=== PATIENT | female | born 1950 | race Caucasian/White ===

== ENCOUNTER 2016-10-29 14:35 | Emergency (ER) | payer MEDICARE, MEDICAID ==
[~2016-10-29] VITALS: Ht 165.1 cm; Wt 73.0 kg
[~2016-10-29 14:35] MED LIST: ACETAM PO; ADVAIR 10028 PUFF/IN IN; AMBIEN10 MG PO; AMOXICILLIN 50500 MG PO; AZITHROMYCIN500 MG PO; BACTRIM DS 8001 TAB PO; BAYER ASPIRIN R81 MG PO; BENZONATATE200 MG PO; BUDEPRION SR150 MG PO; BUPROPION HYDR150 M1 PO; CALCIUM ACETAT667 MG PO; CALTRATE 600 +1 TA1 PO; CALTRATE 600600 MG; CETIRIZINE10 MG OR; CIPRO 500MG TA500 MG PO; DARVOCET-N 1001 EACH PO; DILTIAZEM240 M1 PO; DOXYCYCLINE MO100 MG PO; DULERA1 AR1 IH; Diclofenac Sod100 MG PO; EC NAPROSYN500 MG PO; EVISTA60 MG; FERROUS SULFAT325 M2 PO; FEXOFENADINE180 MG PO; FLEXERIL10 MG PO; FLUOXETINE20 M2 PO; FUROSEMIDE20 MG PO; GABAPENTIN 600600 MG PO; HYCODAN 1.5 MG-1 TAB PO; HYDROCODONE1 TABLET PO; IBUPROFEN600 MG PO; IMDUR30 MG PO; INCRUSE EL62.5 MCG/A IH; KEFLEX 500MG.500 MG PO; KETOROLAC10 MG PO; LIPITOR10 MG; LISINOPRIL 10MG10 MG PO; LORTAB 5/500 501 TAB PO; MEDROL 4MG. DOSE4 MG PO; MELOXICAM7.5 MG PO; METFORMIN500 MG PO; METOCLOPRAMIDE5 MG PO; MUCINEX1200 MG PO; Meclizine25 MG PO; NEURONTIN 300M300 MG PO; NEURONTIN100 MG PO; NEXIUM40 MG PO; PHENERGAN 25MG.25 M1 PO; PREDNISONE 20MG20 MG PO; REQUIP1 MG PO; REQUIP5 MG PO; SEPTRA DS 800 M1 TAB PO; SINGULAIR10 MG PO; SPIRIVA HA1 PUFF/INH IH; SPIRIVA18 MCG IH; SYMBICORT1 AER IH; TESSALON PERLE100 MG PO; TOPROL XL 25MG25 MG PO; TRAMADOL 50MG T50 MG PO; TRAMADOL PO; ULTRACET 325 MG1 TAB PO; ULTRAM50 MG PO; VICODIN 5/500 T1 TAB PO; VICODIN 7.5/501 EACH PO; ZANTAC 300300 MG PO; ZOFRAN ODT8 MG PO; ZOFRAN4 MG PO; ZOLOFT 50MG TAB50 MG PO; ZOLOFT50 MG PO; [UNRECOGNIZED DRUG - REMARK]
--- NOTE | 2016-10-29 15:48 | Emergency Room Report ---
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 N Clinical Suspician of Infection? N Mental Status: 1 - Regular (Normal Baseline) Sepsis Risk:Low Sepsis Risk Have you (or family members/close friends) recently traveled outside the [place]? N If Yes, where/when: Have you had exposure to infectious disease within the past month? TB? Other? Specify: Source patient, RN notes reviewed Exam Limitations no limitations Comment Pt presents with dry cough, wheezing, chest congestion, and sinus pressure for the past month. Reports that she was treated with 10 days of doxycycline from her PCP and improved while she was taking the antibiotic. She has a history of COPD and uses Advair and another inhaled medication. Timing/Duration one month Severity moderate Modifying Factors Improves With: medication. Associated Symptoms chills, cough, shortness of breath ALLERGIES Coded Allergies: hydrochlorothiazide (Severe, ITCHING 10/29/16) amlodipine (Intermediate, ITCHING 10/29/16) Home Medications Active Scripts Tramadol Hcl (Ultram 50MG) 50 MG PO TID #15 TAB Prov: 02/10/13 ONDANSETRON HCL (Zofran 4MG Tab) 4 MG PO Q6HP PRN NAUSEA AND VOMITING #6 TAB Prov: 12/23/15 Reported Medications Atorvastatin Calcium (Lipitor 10MG) 10 QHS Aspirin (Samra Aspirin Regimen) 81 MG PO DAILY DILTIAZEM HCL (Diltiazem 24HR ER) 240 MG PO DAILY Meloxicam (Meloxicam 7.5MG) 7.5 MG PO BID Esomeprazole Magnesium (Nexium 40MG Cap) 40 MG PO DAILY UMECLIDINIUM BROMIDE (Incruse Ellipta) 62.5 MCG IH DAILY Calcium Acetate 667 MG PO BID Ropinirole Hydrochloride (Requip) 0.25 MG PO QHS Metformin HCL (Metformin) 500 MG PO DAILY LISINOPRIL (Lisinopril) 10 MG PO DAILY Ferrous Sulfate (Ferrous Sulfate 325MG) 325 MG PO DAILY #30 TAB Metoprolol Succinate Xl (Toprol Xl) 25 MG PO DAILY Gabapentin (Gabapentin 600MG) 300 MG PO QID Bupropion Hcl (Bupropion HCl Sr) 150 MG PO BID Cetirizine Hcl (Cetirizine HCl) 10 MG OR DAILY (SON ANDRE) History Medical History General CAD? No Angina: No [place]: No Hypertension? Yes Hyperlipidemia? Yes CHF? No DVT? No PE? No COPD? Yes Asthma? No Anemia? Yes GERD? No Gastric ulcers? No GI Bleed? No Hernia? No Thyroid Problems? No Hypothyroidism? No CVA? No Seizures? No Insulin Dependent: No Insulin Pump: No Home FSBS? Yes Renal Insuffiency? No End Stage Renal Disease? No UTI? Yes Stones? Yes BPH? No GB Disease: Yes Nephritic Syndrome? No Asplenia? No Hepatitis? No Sickle Cell Disease? No Arthritis? Yes Migraines? No Cataracts? Yes Glaucoma? No MRSA? Yes HIV? No TB? No Anxiety? No Depression? No Cancer? No Immunization Hx Ped.Immunizations UTD Yes DT/Tetanus 1-4 YRS Flu THIS YR Pneumonia 1-4 YRS Surgical Hx Previous Surgery?Y GALLBLADDER APPY HYSTERECTOMY SHOULDER D & C R SHOULDER MARSHA L SHOULDER HEART CATH L FIFTH FINGER TOENAIL REMOVED LT GREAT CATARACTS LEFT EYE CATARACTS R EYE Family History Family Hx Diabetes Yes CAD Yes Hypertension Yes Hyperlipidemia Yes Cancer Yes TB No Social History Smoking Hx Smoker: Current Every Day Smoker Tobacco: Yes Type Cigarettes Packs/day 1 1/2 - 2 Packs Alcohol Alcohol: No (SON ANDRE) Review of Systems All Other Systems Reviewed and Negative Constitutional chills, malaise ENT nose discharge, nose congestion. denies: ear pain, throat pain. Respiratory cough, shortness of breath, wheezing (SON ANDRE) Physical Exam Vital Signs Vital Signs Date Time Temp Pulse Resp B/P Pulse O2 O2 Flow FiO2 Ox Delivery Rate 10/29 1629 70 18 154/79 91 10/29 1533 70 18 158/80 91 10/29 1447 97.7 73 18 147/80 93 General Appearance normal appearance, WD/WN Eye Exam - bilateral eye normal exam, bilateral eye PERRL, bilateral eye EOMI Ear, Nose, Throat hearing grossly normal, sinus pain/drainage, nasal congestion Neck normal inspection, non-tender, supple, full range of motion Respiratory Status Yes: trachea midline, chest symmetrical, non tender chest. No: respiratory distress. Lung Sounds bilateral: wheezing, inspiration, expiration. 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 No Results/Orders Orders Procedure Date/time Status CHEST(2 VIEWS-NOT PORTABLE) 10/29 1451 Active XRAY/CT/US XRAY/CT/US XR interpretation by reviewed by me Xray Results normal/NAD, no infiltrates Comment See radiologist report. (SON ANDRE) Progress - I have discussed the patient's case with the mid-level practitioner. I agree with the the management and disposition based upon the information reported to me. (Trinity MCBRIDE, Mark) Departure Departure Time of Disposition 1618 Disposition DC Home or Self Care(routine) Clinical Impression Primary Impression: COPD with acute exacerbation Secondary Impressions: Acute bronchitis Qualifiers: Bronchitis organism: unspecified organism Qualified Code: J20.9 - Acute bronchitis, unspecified Acute sinusitis Qualifiers: Sinusitis location: unspecified location Recurrence: not specified as recurrent Qualified Code: J01.90 - Acute sinusitis, unspecified Condition STABLE Referrals Nikky Nuñez MD (Family) Patient Instructions DI for Acute Bronchitis, DI for Chronic Obstructive Pulmonary Disease, DI for Sinusitis Additional Instructions Increase fluids, warm salt water gargles for sore throat. Continue daily medications as directed by PCP. F/U with PCP within 2-3 days for recheck. Discharge Counseling Counseled pt/family regarding diagnosis, test results, medications/RX, home care Prescriptions Current Visit Scripts CEPHALEXIN (Keflex 500MG Capsule) 500 MG PO Q8H 10 Days Methylprednisolone (Medrol Dose Santos) 4 MG PO UD #1 SANTOS TAKE DIRECTED ON PACKAGING ED Critical Care Critical Care No Comments Increase fluids, warm salt water gargles for sore throat. Continue daily medications as directed by PCP. F/U with PCP within 2-3 days for recheck. (SON ANDRE) at 1801 at 1942
--- NOTE | 2016-10-29 16:06 | RADIOLOGY REPORT PS360 ---
CHEST(2 VIEWS-NOT PORTABLE) HISTORY: Cough, congestion, smoker COUGH COMPARISON: 12/13/2014 FINDINGS: The cardiomediastinal silhouette and pulmonary vascularity are within normal limits. All chronic changes in the lung bases. No lobar consolidation or collapse.. No acute bony abnormalities. IMPRESSION: No acute finding
[2016-10-29] MEDS ORDERED: KEFLEX 500MG.500 MG PO (16:23)
[2016-10-29] MEDS ORDERED: MEDROL 4MG. DOSE4 MG PO (16:23)
[2016-10-29 16:29] VITALS: BP 154/79
== END 2016-10-29 16:30 | disposition home or self-care (01) ==
LOC: ER 14:35
DX: J44.0 Chronic obstructive pulmonary disease with (acute) lower respiratory infection (principal); J20.9 Acute bronchitis, unspecified; J44.1 Chronic obstructive pulmonary disease with (acute) exacerbation; Z72.0 Tobacco use; J01.90 Acute sinusitis, unspecified; I10 Essential (primary) hypertension

== ENCOUNTER → 2017-05-26 | Outpatient (CLI) | payer MEDICARE, MEDICAID | LOC: RT 09:40 | DX: R06.02 Shortness of breath (principal); R06.2 Wheezing; R06.00 Dyspnea, unspecified; J44.9 Chronic obstructive pulmonary disease, unspecified; I10 Essential (primary) hypertension; E78.5 Hyperlipidemia, unspecified; Z82.49 Family history of ischemic heart disease and other diseases of the circulatory system ==

== ENCOUNTER → 2017-07-08 | Outpatient (CLI) | payer MEDICARE, MEDICAID ==
--- NOTE | 2017-07-09 08:17 | RADIOLOGY REPORT PS360 ---
EXAM: CT LUNG LOW DOSE WO CONTRAST COMPARISON: None HISTORY: 67-year-old female with greater than 30 pack-year smoking history currently asymptomatic ORDERING PHYSICIAN: Nikky Nuñez MD PATIENT AGE: 67 years TECHNIQUE: The exam was performed on a GE Light Speed [address] scanner using 2.95 mGy CTDI. A low dose helical CT CHEST was performed on a multi-detector scanner The LDCT was performed in a facility that meets the criteria for the screening program. Data regarding this exam was submitted to ACR which is an approved registry. The order for this exam indicates that it came as a result of a lung cancer screening counseling shard decision-making visit that included all the elements required of such a visit including smoking cessation. The radiologist interpreting this exam meets the [facility] criteria for the LDCT lung cancer screening program. The exam is reported using the Lung-RADS classification scale and reported to the ACR registry. NOTE: THIS STUDY WAS PERFORMED FOR THE SPECIFIC PURPOSES OF LUNG CANCER SCREENING AND IS NOT AN ALTERNATIVE TO DIAGNOSTIC CHEST CT RADIATION DOSE: CTDI vol(CT dose Index-volume) = 2.95mG DLP (Dose Length Product) = 109.44 mGcm FINDINGS: There are centrilobular emphysematous changes with biapical fibrosis. Atelectatic changes are present in the lung bases. No suspicious pulmonary nodules are evident. Calcified granuloma is present in the right perihilar region and in the lingula. There is a 3 mm noncalcified nodule in the superior segment left lower lobe. No effusions or infiltrates. Coronary artery calcifications. . IMPRESSION: 1. Lung RADS Category: 2, benign findings 2. Other findings: Centrilobular emphysematous change Coronary artery disease Old granulomatous disease RECOMMENDATIONS: 12 month screening LDCT
== END ==
LOC: RAD 13:16
DX: Z87.891 Personal history of nicotine dependence (principal); Z12.2 Encounter for screening for malignant neoplasm of respiratory organs
CPT/HCPCS: G0297

== ENCOUNTER 2017-08-01 00:47 | Emergency (ER) | payer MEDICARE, MEDICAID ==
[~2017-08-01] VITALS: Ht 165.1 cm; Wt 80.7 kg
--- NOTE | 2017-08-01 01:31 | Emergency Room Report ---
History of Present Illness Time Seen by MD Hewitt Presenting Problem in Triage Pt arrived:Walked Presenting Problem:FELL TAKING DOG TO ANIMAL DETENTION, STATES SHE FELL FACE FIRST. INJURED LEFT SHOULDER AND RIBS. 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 N Clinical Suspician of Infection? N Mental Status: 1 - Regular (Normal Baseline) Sepsis Risk:Low Sepsis Risk Have you (or family members/close friends) recently traveled outside the [place]? N If Yes, where/when: Have you had exposure to infectious disease within the past month? N TB? Other? Specify: Source patient, RN notes reviewed, family, old records Exam Limitations no limitations Comment trip injury with lt shoulder and rib injury this am Cardiac Chest Pain Chest pain indicative of cardiac No Timing/Duration this evening Severity moderate ALLERGIES Coded Allergies: hydrochlorothiazide (Severe, ITCHING 10/29/16) amlodipine (Intermediate, ITCHING 10/29/16) Home Medications Active Scripts Tramadol Hcl (Ultram 50MG) 50 MG PO TID #15 TAB Prov: 02/10/13 ONDANSETRON HCL (Zofran 4MG Tab) 4 MG PO Q6HP PRN NAUSEA AND VOMITING #6 TAB Prov: 12/23/15 Methylprednisolone (Medrol Dose Santos) 4 MG PO UD #1 SANTOS Prov: 10/29/16 Reported Medications Atorvastatin Calcium (Lipitor 10MG) 10 QHS Aspirin (Samra Aspirin Regimen) 81 MG PO DAILY DILTIAZEM HCL (Diltiazem 24HR ER) 240 MG PO DAILY Meloxicam (Meloxicam 7.5MG) 7.5 MG PO BID Esomeprazole Magnesium (Nexium 40MG Cap) 40 MG PO DAILY UMECLIDINIUM BROMIDE (Incruse Ellipta) 62.5 MCG IH DAILY Calcium Acetate 667 MG PO BID Ropinirole Hydrochloride (Requip) 0.25 MG PO QHS Metformin HCL (Metformin) 500 MG PO DAILY LISINOPRIL (Lisinopril) 10 MG PO DAILY Ferrous Sulfate (Ferrous Sulfate 325MG) 325 MG PO DAILY #30 TAB Metoprolol Succinate Xl (Toprol Xl) 25 MG PO DAILY Gabapentin (Gabapentin 600MG) 300 MG PO QID Bupropion Hcl (Bupropion HCl Sr) 150 MG PO BID Cetirizine Hcl (Cetirizine HCl) 10 MG OR DAILY History Medical History General CAD? No Angina: No [place]: No Hypertension? Yes Hyperlipidemia? Yes CHF? No DVT? No PE? No COPD? Yes Asthma? No Anemia? Yes GERD? No Gastric ulcers? No GI Bleed? No Hernia? No Thyroid Problems? No Hypothyroidism? No CVA? No Seizures? No Diabetes? Yes Insulin Dependent: No Insulin Pump: No Home FSBS? Yes Renal Insuffiency? No End Stage Renal Disease? No UTI? Yes Stones? Yes BPH? No GB Disease: Yes Nephritic Syndrome? No Asplenia? No Hepatitis? No Sickle Cell Disease? No Arthritis? Yes Migraines? No Cataracts? Yes Glaucoma? No MRSA? Yes HIV? No TB? No Anxiety? No Depression? No Cancer? No Immunization Hx DT/Tetanus 1-4 YRS Flu THIS YR Pneumonia 1-4 YRS Surgical Hx Previous Surgery?Y GALLBLADDER APPY HYSTERECTOMY SHOULDER D & C R SHOULDER MARSHA L SHOULDER HEART CATH L FIFTH FINGER TOENAIL REMOVED LT GREAT CATARACTS LEFT EYE CATARACTS R EYE Family History Family Hx Diabetes Yes CAD Yes Hypertension Yes Hyperlipidemia Yes Cancer Yes TB No Social History Smoking Hx Smoker: Current Every Day Smoker Tobacco: No Type Cigarettes Packs/day 1 1/2 - 2 Packs Alcohol Alcohol: No Drugs none Review of Systems All Other Systems Reviewed and Negative Constitutional denies fever Eyes denies drainage ENT denies: ear discharge, epistaxis, throat pain. Respiratory denies cough, denies shortness of breath, denies wheezing Cardiovascular denies chest pain, denies palpitations, denies syncope Gastrointestinal denies abdominal pain, denies diarrhea, denies vomiting Genitourinary denies: dysuria, frequency, hesitancy, hematuria. Musculoskeletal see HPI, denies back pain, joint pain, denies joint swelling, denies neck pain, other Skin denies rash Psychiatric/Neurological denies headache, denies seizure Physical Exam Vital Signs Vital Signs Date Time Temp Pulse Resp B/P Pulse O2 O2 Flow FiO2 Ox Delivery Rate 08/01 0053 98.4 72 20 160/80 94 - WBC >12,000 or <4,000 or 10% bands? 2 or more SIRS Criteria Met? B/P:160/80 MAP:106 Creatinine >2.0? UA output<0.5ml/kg/hr for 2 hrs? Platelet count >100,000? Lactate >2.0mmol/1? INR >1.2 or PTT > than 60 sec? Evidence of Organ Dysfunction? Provider documented clinical suspician of infection? N Sepsis Criteria Count: 1 Sepsis Risk: Low Sepsis Risk General Appearance no apparent distress Eye Exam - bilateral eye PERRL, bilateral eye EOMI Ear, Nose, Throat normal ENT inspection Neck supple Respiratory Status Yes: tender on palpation. No: respiratory distress. Lung Sounds bilateral: decreased breath sounds. 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 No Results/Orders Current Medication Orders Sig/Funmilayo Start time Last Medication Dose Route Stop Time Status Admin Acetaminophen 650 MG ONCE ONE 08/01 100 DC 08/01 PO 08/01 101 0100 Orders Procedure Date/time Status [id number] VIEWS 08/01 104 Active [id number] VIEWS 08/01 104 Active XRAY/CT/US XRAY/CT/US XRAY chest, rib, shoulder XR interpretation by reviewed by me Xray Results no fracture seen Departure Departure Time of Disposition 0121 Disposition DC Home or Self Care(routine) Clinical Impression Primary Impression: Contusion of rib on left side Qualifiers: Encounter type: initial encounter Qualified Code: S20.212A - Contusion of left front wall of thorax, initial encounter Secondary Impressions: Sprain of shoulder, left Qualifiers: Encounter type: initial encounter Shoulder sprain type: unspecified sprain Qualified Code: S43.402A - Unspecified sprain of left shoulder joint, initial encounter Condition STABLE Referrals Nikky Nuñez MD (Family) Patient Instructions DI for Rib Contusion Additional Instructions wear sling and ice and see pcp if needed Discharge Counseling Counseled pt/family regarding diagnosis, test results, medications/RX, follow up needs ED Critical Care Critical Care No at 0137
--- NOTE | 2017-08-01 01:31 | Emergency Room Report ---
History of Present Illness Time Seen by MD Hewitt Presenting Problem in Triage Pt arrived:Walked Presenting Problem:FELL TAKING DOG TO ANIMAL CUSTODIAL, STATES SHE FELL FACE FIRST. INJURED LEFT SHOULDER AND RIBS. 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 N Clinical Suspician of Infection? N Mental Status: 1 - Regular (Normal Baseline) Sepsis Risk:Low Sepsis Risk Have you (or family members/close friends) recently traveled outside the [place]? N If Yes, where/when: Have you had exposure to infectious disease within the past month? N TB? Other? Specify: Source patient, RN notes reviewed, family, old records Exam Limitations no limitations Comment trip injury with lt shoulder and rib injury this am Cardiac Chest Pain Chest pain indicative of cardiac No Timing/Duration this evening Severity moderate ALLERGIES Coded Allergies: hydrochlorothiazide (Severe, ITCHING 10/29/16) amlodipine (Intermediate, ITCHING 10/29/16) Home Medications Active Scripts Tramadol Hcl (Ultram 50MG) 50 MG PO TID #15 TAB Prov: 02/10/13 ONDANSETRON HCL (Zofran 4MG Tab) 4 MG PO Q6HP PRN NAUSEA AND VOMITING #6 TAB Prov: 12/23/15 Methylprednisolone (Medrol Dose Santos) 4 MG PO UD #1 SANTOS Prov: 10/29/16 Reported Medications Atorvastatin Calcium (Lipitor 10MG) 10 QHS Aspirin (Samra Aspirin Regimen) 81 MG PO DAILY DILTIAZEM HCL (Diltiazem 24HR ER) 240 MG PO DAILY Meloxicam (Meloxicam 7.5MG) 7.5 MG PO BID Esomeprazole Magnesium (Nexium 40MG Cap) 40 MG PO DAILY UMECLIDINIUM BROMIDE (Incruse Ellipta) 62.5 MCG IH DAILY Calcium Acetate 667 MG PO BID Ropinirole Hydrochloride (Requip) 0.25 MG PO QHS Metformin HCL (Metformin) 500 MG PO DAILY LISINOPRIL (Lisinopril) 10 MG PO DAILY Ferrous Sulfate (Ferrous Sulfate 325MG) 325 MG PO DAILY #30 TAB Metoprolol Succinate Xl (Toprol Xl) 25 MG PO DAILY Gabapentin (Gabapentin 600MG) 300 MG PO QID Bupropion Hcl (Bupropion HCl Sr) 150 MG PO BID Cetirizine Hcl (Cetirizine HCl) 10 MG OR DAILY History Medical History General CAD? No Angina: No [place]: No Hypertension? Yes Hyperlipidemia? Yes CHF? No DVT? No PE? No COPD? Yes Asthma? No Anemia? Yes GERD? No Gastric ulcers? No GI Bleed? No Hernia? No Thyroid Problems? No Hypothyroidism? No CVA? No Seizures? No Diabetes? Yes Insulin Dependent: No Insulin Pump: No Home FSBS? Yes Renal Insuffiency? No End Stage Renal Disease? No UTI? Yes Stones? Yes BPH? No GB Disease: Yes Nephritic Syndrome? No Asplenia? No Hepatitis? No Sickle Cell Disease? No Arthritis? Yes Migraines? No Cataracts? Yes Glaucoma? No MRSA? Yes HIV? No TB? No Anxiety? No Depression? No Cancer? No Immunization Hx DT/Tetanus 1-4 YRS Flu THIS YR Pneumonia 1-4 YRS Surgical Hx Previous Surgery?Y GALLBLADDER APPY HYSTERECTOMY SHOULDER D & C R SHOULDER MARSHA L SHOULDER HEART CATH L FIFTH FINGER TOENAIL REMOVED LT GREAT CATARACTS LEFT EYE CATARACTS R EYE Family History Family Hx Diabetes Yes CAD Yes Hypertension Yes Hyperlipidemia Yes Cancer Yes TB No Social History Smoking Hx Smoker: Current Every Day Smoker Tobacco: No Type Cigarettes Packs/day 1 1/2 - 2 Packs Alcohol Alcohol: No Drugs none Review of Systems All Other Systems Reviewed and Negative Constitutional denies fever Eyes denies drainage ENT denies: ear discharge, epistaxis, throat pain. Respiratory denies cough, denies shortness of breath, denies wheezing Cardiovascular denies chest pain, denies palpitations, denies syncope Gastrointestinal denies abdominal pain, denies diarrhea, denies vomiting Genitourinary denies: dysuria, frequency, hesitancy, hematuria. Musculoskeletal see HPI, denies back pain, joint pain, denies joint swelling, denies neck pain, other Skin denies rash Psychiatric/Neurological denies headache, denies seizure Physical Exam Vital Signs Vital Signs Date Time Temp Pulse Resp B/P Pulse O2 O2 Flow FiO2 Ox Delivery Rate 08/01 0053 98.4 72 20 160/80 94 - WBC >12,000 or <4,000 or 10% bands? 2 or more SIRS Criteria Met? B/P:160/80 MAP:106 Creatinine >2.0? UA output<0.5ml/kg/hr for 2 hrs? Platelet count >100,000? Lactate >2.0mmol/1? INR >1.2 or PTT > than 60 sec? Evidence of Organ Dysfunction? Provider documented clinical suspician of infection? N Sepsis Criteria Count: 1 Sepsis Risk: Low Sepsis Risk General Appearance no apparent distress Eye Exam - bilateral eye PERRL, bilateral eye EOMI Ear, Nose, Throat normal ENT inspection Neck supple Respiratory Status Yes: tender on palpation. No: respiratory distress. Lung Sounds bilateral: decreased breath sounds. 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 No Results/Orders Current Medication Orders Sig/Funmilayo Start time Last Medication Dose Route Stop Time Status Admin Acetaminophen 650 MG ONCE ONE 08/01 100 DC 08/01 PO 08/01 101 0100 Orders Procedure Date/time Status [id number] VIEWS 08/01 104 Active [id number]-3 VIEWS 08/01 104 Active XRAY/CT/US XRAY/CT/US XRAY chest, rib, shoulder XR interpretation by reviewed by me Xray Results no fracture seen Departure Departure Time of Disposition 0121 Disposition DC Home or Self Care(routine) Clinical Impression Primary Impression: Contusion of rib on left side Qualifiers: Encounter type: initial encounter Qualified Code: S20.212A - Contusion of left front wall of thorax, initial encounter Secondary Impressions: Sprain of shoulder, left Qualifiers: Encounter type: initial encounter Shoulder sprain type: unspecified sprain Qualified Code: S43.402A - Unspecified sprain of left shoulder joint, initial encounter Condition STABLE Referrals Nikky Nuñez MD (Family) Patient Instructions DI for Rib Contusion Additional Instructions wear sling and ice and see pcp if needed Discharge Counseling Counseled pt/family regarding diagnosis, test results, medications/RX, follow up needs ED Critical Care Critical Care No at 0139
[2017-08-01 01:42] VITALS: BP 160/80
--- NOTE | 2017-08-01 04:14 | RADIOLOGY REPORT PS360 ---
[id number] VIEWS HISTORY: Pain following injury TRIPPED AND FELL,C/O PAIN TO LEFT RIBS ORDERING PHYSICIAN: Felice Fisher MD PATIENT AGE: 67 years COMPARISON: None FINDINGS: There is a minimally displaced fracture involving the greater tuberosity longitudinal in nature. Humeral head is located. Unremarkable glenohumeral joint. IMPRESSION: Minimally displaced avulsion fracture of the greater tuberosity
--- NOTE | 2017-08-01 04:14 | RADIOLOGY REPORT PS360 ---
[id number] VIEWS HISTORY: Left-sided rib injury with pain TRIPPED AND FELL,C/O PAIN TO LEFT RIBS ORDERING PHYSICIAN: Felice Fisher MD PATIENT AGE: 67 years COMPARISON: 04/29/2017 FINDINGS: A frontal view of the chest shows no acute finding. Multiple views of the Left ribs were obtained. No fracture or dislocation. No lytic or blastic change. IMPRESSION: Negative RIBS. If pain persists, consider follow-up exam in 7-[address] with 3-D reformats.
--- OUTSIDE RECORDS SUMMARY | 2017-08-02 18:41 | External Medical Summary Rpt | CCD ---
Author Author , KASSI SOLITARIO Address Unknown Phone [email or web address] Care Team Providers Care Sock Drier Name Role Phone [facility] Unavailable Unavailable [place], [facility] [place] Bernardo MD, Unavailable Unavailable Jamar Bernardo MD Purpose Continuity of Care Document - 03-29-2010 through 2016 Problems Code Diagnosis DOS Provider Status 496 496 [facility] 03-12-2013 [facility] NEC 724.3 724.3 03-12-2013 [facility] 250.00 611.79 786.50 E78.5 HYPERLIPIDE ALEXIS, UNSPECIFIED I10 ESSENTIAL (PRIMARY) HYPERTENSIO N J01.90 ACUTE SINUSITIS, UNSPECIFIED J20.9 ACUTE BRONCHITIS, UNSPECIFIED J40 BRONCHITIS, NOT SPECIFIED ACUTE OR CHRONIC J44.1 CHRONIC OBSTRUCTIVE PULMONARY DISEASE W (ACUTE) EXACERBATIO N J45.909 UNSPECIFIED ASTHMA, UNCOMPLICAT ED K52.9 NONINFECTIV E GASTROENTER ITIS AND COLITIS, UNSPECIFIED M17.10 UNILATERAL PRIMARY OSTEOARTHRI TIS, UNSPECIFIED KNEE M17.9 OSTEOARTHRI TIS OF KNEE, UNSPECIFIED M25.842 OTHER SPECIFIED JOINT DISORDERS, LEFT HAND M54.5 LOW BACK PAIN M81.0 AGE-RELATED OSTEOPOROSI S W/O CURRENT PATHOLOGICA L FRACTURE R07.9 CHEST PAIN, UNSPECIFIED S63.619A UNSPECIFIED SPRAIN OF UNSPECIFIED FINGER, INITIAL ENCOUNTER V58.69 V72.81 Z12.31 ENCNTR SCREEN MAMMOGRAM FOR MALIGNANT NEOPLASM OF BREAST Allergies, Adverse Reactions, Alerts Type Drug Allergy Adverse Reaction to Substance Substance Reaction Severity Hydrochlorothiazide I-ITCHING Intermediate Amlodipine I-ITCHING Intermediate Clinical Alert Notifications Alert Diabetes: no eye exam in the last 365 days Diabetes: no lipid panel in the last 365 days Diabetes: no urine protein screening in the last 365 days Medications Na ND Rx Da Fi Fi Am Da Di Ph RX Ph St me C No te ll ll ou ys ag ar # ys at rm s nt no ma ic us Or Da si cy ia de te s n re d Ib 62 06 0 No up 58 -1 ro 40 4- Lo fe 74 20 ng n 60 13 er 40 1 0M Ac G ti Ta ve bl et Me 00 05 0 No th 00 -2 yl 90 4- Lo pr 19 20 ng ed 00 13 er ni 9 so Ac lo ti ne ve So d Young cc in a BU 55 05 0 No TO 39 -2 RP 00 4- Lo FIELD 18 20 ng NO 40 13 er L 1 2 Ac MG ti /M ve L AL IN 51 04 0 No DO 07 -2 ME 90 4- Lo TH 19 20 ng AC 02 13 er IN 0 Ac 25 ti ve MG CA PS UL E AC 51 04 0 No ET 07 -2 AM 90 4- Lo IN 16 20 ng OP 19 13 er HE 9H N Ac W/ ti CO ve DE IN E #3 TA K AC 51 03 0 No ET 07 -0 AM 90 8- Lo IN 16 20 ng OP 19 13 er HE 9H N Ac W/ ti CO ve DE IN E #3 TA K De 00 03 0 No xa 51 -0 me 74 8- Lo th 90 20 ng as 12 13 er on 5 e Ac 4M ti G/ ve Ml Sd v KE 00 03 0 No TO 40 -0 RO 93 8- Lo LA 79 20 ng C 60 13 er 60 1 Ac MG ti /2 ve ML AL [place] 00 03 03 0 12 4 EA 21 NO Ac OM 60 -1 -[address] 70 RF ti ET 31 5- 5- 00 SI 98 LE ve FIELD 58 20 20 0 DE ET ZI 55 11 11 R NE 8 PH -C AR HE OD MA NR EI CY Y NE OF SY RU CY P NT HI AN A 00 06 06 0 20 7 EA 17 NO Ac 25 -1 -[address] 93 RF ti 83 0- 0- 00 SI 69 LE ve 65 20 20 DE ET 40 10 10 R 1 PH AR HE MA NR CY Y OF CY NT HI AN A Vital Signs 04-02-2013 09:13 Name Value Interpretat Reference Comment ion Range BP 82 mm[Hg] Diastolic BP Systolic 150 mm[Hg] Heart 64 /min Rate/Pulse O2% 97 % Respiratory 20 /min Rate 04-02-2013 09:08 Name Value Interpretat Reference Comment ion Range BP 76 mm[Hg] Diastolic BP Systolic 150 mm[Hg] Heart 67 /min Rate/Pulse O2% 97 % Respiratory 20 /min Rate 03-12-2013 18:35 Name Value Interpretat Reference Comment ion Range BP 79 mm[Hg] Diastolic BP Systolic 130 mm[Hg] Heart 68 /min Rate/Pulse O2% 98 % Respiratory 20 /min Rate 03-12-2013 18:08 Name Value Interpretat Reference Comment ion Range BP 60 mm[Hg] Diastolic BP Systolic 110 mm[Hg] Heart 77 /min Rate/Pulse O2% 98 % Respiratory 20 /min Rate 02-10-2013 21:06 Name Value Interpretat Reference Comment ion Range BP 72 mm[Hg] Diastolic BP Systolic 120 mm[Hg] Heart 82 /min Rate/Pulse O2% 96 % Respiratory 20 /min Rate 02-10-2013 20:07 Name Value Interpretat Reference Comment ion Range BP 75 mm[Hg] Diastolic BP Systolic 129 mm[Hg] Heart 80 /min Rate/Pulse O2% 96 % Respiratory 22 /min Rate 12-25-2012 21:12 Name Value Interpretat Reference Comment ion Range BP 94 mm[Hg] Diastolic BP Systolic 143 mm[Hg] Heart 89 /min Rate/Pulse O2% 96 % Respiratory 20 /min Rate 12-25-2012 20:40 Name Value Interpretat Reference Comment ion Range BP 90 mm[Hg] Diastolic BP Systolic 152 mm[Hg] Heart 79 /min Rate/Pulse O2% 96 % Respiratory 20 /min Rate Results Labs Lab Lab Date Result Refere Interp Status Commen Order Detail nces retati t Range on Drugs identified in Urine by Screen method (05-19-2017 14:56) Ampheta NEGATIV <1000 complet mine 017 E ed [Presen 14:56 ce] in Urine by Screen method 11- NEGATIV <50 complet oxy 017 E ed delta-9 14:56 tetrahy drocann abinol [Presen ce] in Unspeci fied specime n Encounters Encounter Start End Date Code Location Performer Type Date Emergency RITESH Garza (ER) 3 08:59 3 09:14 [facility] [place] Emergency RITESH Bernardo (ER) 3 17:42 3 18:36 [facility] Emergency RITESH Fisher MD (ER) 3 18:51 3 21:06 [facility] Emergency RITESH Fisher MD (ER) 3 20:21 3 21:18 [facility]
--- OUTSIDE RECORDS SUMMARY | 2017-08-02 18:41 | External Medical Summary Rpt | CCD ---
Author Author , KASSI SOLITARIO Address Unknown Phone [email or web address] Care Team Providers Care Biotechnician Name Role Phone [facility] Unavailable Unavailable [place], [facility] [place] Bernardo MD, Unavailable Unavailable Jamar Bernardo MD Purpose Continuity of Care Document - 03-29-2010 through 2016 Problems Code Diagnosis DOS Provider Status 496 496 [facility] 03-12-2013 [facility] NEC 724.3 724.3 03-12-2013 [facility] 250.00 611.79 786.50 E78.5 HYPERLIPIDE ALEXIS, UNSPECIFIED [...] Ac MG ti /2 ve ML AL AL 00 03 03 0 12 4 EA [...] RITESH Garza (ER) 3 08:59 3 09:14 [facility] [place] Emergency RITESH Bernardo (ER) 3 17:42 3 18:36 [facility] Emergency RITESH Fisher MD (ER) 3 18:51 3 21:06 [facility] Emergency RITESH Fisher MD (ER) 3 20:21 3 21:18 [facility]
--- OUTSIDE RECORDS SUMMARY | 2017-08-02 18:42 | External Medical Summary Rpt | CCD ---
Author Author , KASSI Organization KASSI Address Unknown Phone [email or web address] Immunization Name Date Rout CVX Reac Dose Comm Prov Is Faci e tion ent ider Refu lity Give sed n Infl 09-1 0.5 Hist [facility] No RITE uenz 8-20 mL oric JOSE AID0 a 17 al AYMA 3938 Tri, Info N Adj rmat ion - Sour ce Unsp ecif ied PCV1 07-2 133 0.5 Hist [facility] No RITE 3 9-20 mL oric JOSE AID0 16 al AYMA 3938 Info N rmat ion - Sour ce Unsp ecif ied Td 11-0 Intr 9 999 Hist H149 No H149 (yamila 6-20 amus oric lt), 03 cula al r Info adso rmat rbed ion - Sour ce Unsp ecif ied PPV2 12-1 Intr 33 999 Hist H149 No H149 3 2-20 amus oric 01 cula al r Info rmat ion - Sour ce Unsp ecif ied
--- OUTSIDE RECORDS SUMMARY | 2017-08-02 18:42 | External Medical Summary Rpt | CCD ---
Demographics Preferred Language Georgian Marital Status Unknown Buddhism Affiliation Unknown Race Unknown Ethnic Group Unknown Author Author , KASSI SOLITARIO Address Unknown Phone [email or web address] Care Team Providers Care Ice Bag Assembler Name Role Phone [facility] Unavailable Unavailable [place], [facility] [place] Purpose Continuity of Care Document - 03-29-2010 through 2016 Medications Na ND Rx Da Fi Fi Am Da Di Ph RX Ph St me C No te ll ll ou ys ag ar # ys at rm s nt no ma ic us Or Da si cy ia de te s n re d [place] 00 03 03 0 12 4 EA [...]
--- OUTSIDE RECORDS SUMMARY | 2017-08-02 18:42 | External Medical Summary Rpt ---
Author Author [employer] Production, [employer] Organization [employer] Address Unknown Phone Unavailable Results Opiates and Oxycodone(GC/MS),U Observa Value Referen Units Interpr Notes Date tion ce etation Range Oxycodo Negativ Cutoff= No No Test May 19 ne/Oxym e 100 informa informa include 2017 orph tion in tion in s 2:56 PM source source Oxycodo data data ne and [employer] honePer formed at: [facility] [id number] [place], [place] [address]Lab Directo r: Gold Pan MD, Phone: [phone] Opiates Negativ Cutoff= No No Opiate May 19 e 100 informa informa test 2017 tion in tion in include 2:56 PM source source s data data Codeine , Morphin e, Hydromo rphone, Hydroco done. Drugs identified in Urine by Screen method Observa Value Referen Units Interpr Notes Date tion ce etation Range Positive urine drug screen samples are stored for 7 days. Contact the Lab if confirmation of positives is needed. Ampheta NEGATIV <1000 ng/mL No No May 19 mine E informa informa 2016 [Presen tion in tion in 2:56 PM ce] in source source Urine data data by Screen method Barbitura <200 ng/mL No No May 19 boni informati informati 2017 2:56 [Mass/vol on in on in PM ume] in source source Urine by data data Screen method Benzodiaz 200 ng/mL ng/mL No No May 19 epines informati informati 2017 2:56 [Mass/vol on in on in PM ume] in source source Serum or data data Plasma by Screen method Cocaine <300 ng/g No No May 19 [Mass/vol informati informati 2017 2:56 ume] in on in on in PM Unspecifi source source ed data data specimen Methadone <300 ng/mL No No May 19 informati informati 2017 2:56 [Mass/vol on in on in PM ume] in source source Unspecifi data data ed specimen Opiates <300 ng/mL No No May 19 [Mass/vol informati informati 2017 2:56 ume] in on in on in PM Unspecifi source source ed data data specimen Phencycli <25 ng/mL No No May 19 dine informati informati 2017 2:56 [Mass/vol on in on in PM ume] in source source Unspecifi data data ed specimen 11-Hydr NEGATIV <50 ng/mL No No May 19 oxy E informa informa 2017 delta-9 tion in tion in 2:56 PM source source tetrahy data data drocann abinol [Presen ce] in Unspeci fied specime n Basic metabolic panel in Blood Observa Value Referen Units Interpr Notes Date tion ce etation Range Urea 7 - 18 mg/dL Normal No May 06 nitrogen informati 2016 7:15 [Mass/vol on in AM ume] in source Serum or data Plasma Calcium 8.5 - mg/dL Normal No May 06 [Mass/vol 10.1 informati 2016 7:15 ume] in on in AM Serum or source Plasma data Chloride 98 - 107 mmoL/L Normal No May 06 [Moles/vo informati 2016 7:15 lume] in on in AM Serum or source Plasma data Carbon 21.0 - mmoL/L Normal No May 06 dioxide, 32.0 informati 2016 7:15 total on in AM [Moles/vo source lume] in data Serum or Plasma Creatinin 0.55 - mg/dL Normal No May 06 e 1.02 informati 2016 7:15 [Mass/vol on in AM ume] in source Serum or data Plasma Estimated 59- ML/MIN Low REFERENCE May 06 RANGE: 2016 7:15 glomerula >60 AM r ML/MIN/1. filtratio 73 SQUARE n rate METERSIf (GF this patient is -A merican, then multiply theresult by 1.210. Glucose 74 - 106 mg/dL High No May 06 [Mass/vol informati 2016 7:15 ume] in on in AM Serum or source Plasma data Potassium 3.5 - 5.1 mmoL/L Normal No May 06 informati 2016 7:15 [Moles/vo on in AM lume] in source Serum or data Plasma Sodium 136 - 145 mmoL/L Normal No May 06 [Moles/vo informati 2016 7:15 lume] in on in AM Serum or source Plasma data Thyroxine (T4) free [Mass/volume] in Serum or Plasma Observa Value Referen Units Interpr Notes Date tion ce etation Range Thyroxine 0.76 - ng/dL Normal No May 06 (T4) 1.46 informati 2016 7:15 free on in AM [Mass/vol source ume] in data Serum or Plasma Thyrotropin [Units/volume] in Serum or Plasma Observa Value Referen Units Interpr Notes Date tion ce etation Range Thyrotrop 0.358 - uIU/ml Normal No May 06 in 3.740 informati 2016 7:15 [Units/vo on in AM lume] in source Serum or data Plasma CBC W Auto Differential panel in Blood Observa Value Referen Units Interpr Notes Date ti ce etation Range Basophils 0 - 0.2 K/MM3 Normal No May 06 informati 2016 7:15 [#/volume on in AM ] in source Blood by data Automated count Basophils 0.1 - 2.0 % Normal No May 06 / informati 2016 7:15 leukocyte on in AM s in source Blood by data Automated count Eosinophi 0.0 - 0.4 K/mm3 Normal No May 06 ls informati 2016 7:15 [#/volume on in AM ] in source Blood by data Automated count Eosinophi 0.1 - % Normal No May 06 ls/100 12.0 informati 2016 7:15 leukocyte on in AM s in source Blood by data Automated count Granulocy 1.8 - 7.8 K/mm3 Normal No May 06 boni informati 2016 7:15 [#/volume on in AM ] in source Blood by data Automated count Granulocy 37.0 - % Normal No May 06 boni/100 80.0 informati 2016 7:15 leukocyte on in AM s in source Blood by data Automated count Hematocri 37.0 - % Normal No May 06 t [Volume 47.0 informati 2016 7:15 on in AM Fraction] source of Blood data Hemoglobi 12.2 - g/dL Normal No May 06 n 16.2 informati 2016 7:15 [Mass/vol on in AM ume] in source Blood data Lymphocyt 0.7 - 4.5 K/mm3 Normal No May 06 es informati 2017 7:15 [#/volume on in AM ] in source Unspecifi data ed specimen by Automated count Lymphocyt 10 - 50.0 % Normal No May 06 es informati 2017 7:15 [#/volume on in AM ] in source Unspecifi data ed specimen by Automated count Erythrocy 27 - 31.2 pg Normal No May 06 te mean informati 2016 7:15 corpuscul on in AM ar source hemoglobi data n [Entitic mass] Erythrocy 31.8 - g/dl Normal No May 06 te mean 35.4 informati 2017 7:15 corpuscul on in AM ar source hemoglobi data n concentra tion [Mass/vol ume] by Automated count Erythrocy 82.2 - fl Normal No May 06 te mean 97.8 informati 2017 7:15 corpuscul on in AM ar volume source [Entitic data volume] by Automated count Monocytes 0.1 - 1.0 K/mm3 Normal No May 06 informati 2016 7:15 [#/volume on in AM ] in source Blood by data Automated count Monocytes 1.7 - 9.3 % Normal No Apr 18 /100 informati 2017 7:15 leukocyte on in AM s in source Blood by data Automated count Platelet 7.4 - fl Normal No May 06 mean 10.4 informati 2017 7:15 volume on in AM [Entitic source volume] data in Blood by Automated count Platelets 142 - 424 K/mm3 Normal No May 06 informati 2017 7:15 [#/volume on in AM ] in source Blood data Erythrocy 4.2 - 5.4 M/mm3 Normal No May 06 boni informati 2017 7:15 [#/volume on in AM ] in source Amniotic data fluid Erythrocy 11.5 - % Normal No May 06 te 17.5 informati 2017 7:15 distribut on in AM ion width source [Entitic data volume] by Automated count Leukocyte 4.8 - K/MM3 High No May 06 s 10.8 informati 2017 7:15 [#/volume on in AM ] in source Blood data
--- OUTSIDE RECORDS SUMMARY | 2017-08-02 18:42 | External Medical Summary Rpt | CCD ---
Demographics Preferred Language Greek Marital Status Unknown Zoroastrian Affiliation Unknown Race Unknown Ethnic Group Unknown Author Author , KASSI SOLITARIO Address Unknown Phone [email or web address] Care Team Providers Care Manager Retention Name Role Phone [facility] Unavailable Unavailable [place], [facility] [place] Purpose Continuity of Care Document - 03-29-2010 through 2016 Medications Na ND Rx Da Fi Fi Am Da Di Ph RX Ph St me C No te ll ll ou ys ag ar # ys at rm s nt no ma ic us Or Da si cy ia de te s n re d [place] 00 03 03 0 12 4 EA [...]
--- OUTSIDE RECORDS SUMMARY | 2017-08-02 18:42 | External Medical Summary Rpt | CCD ---
Author Author , KASSI Organization KASSI Address Unknown Phone [email or web address] - Addiction Treatment Reviews & Information Immunization Name Date Rout CVX Reac Dose [...]
--- OUTSIDE RECORDS SUMMARY | 2017-08-02 18:42 | External Medical Summary Rpt ---
[...] data ne and [employer] honePer formed at: [facility] [id number] [place], [place] [id number]Lab Directo r: Gold Pan MD, Phone: [phone] Opiates Negativ Cutoff= No No Opiate May [...]
== END 2017-08-01 01:43 | disposition home or self-care (01) ==
LOC: ER 00:47
DX: S20.212A Contusion of left front wall of thorax, initial encounter (principal); S43.402A Unspecified sprain of left shoulder joint, initial encounter; I10 Essential (primary) hypertension; E78.5 Hyperlipidemia, unspecified; J44.9 Chronic obstructive pulmonary disease, unspecified; D64.9 Anemia, unspecified; F17.210 Nicotine dependence, cigarettes, uncomplicated; W01.0XXA Fall on same level from slipping, tripping and stumbling without subsequent striking against object, initial encounter; Y92.89 Other specified places as the place of occurrence of the external cause

== ENCOUNTER → 2017-08-05 | Outpatient (CLI) | payer MEDICARE, MEDICAID ==
--- NOTE | 2017-08-05 13:55 | RADIOLOGY REPORT PS360 ---
CT EXT.UPPER-LT-W/O CONTRAST CLINICAL INDICATION: Follow-up fracture of the left humerus Closed fx of proximal end of left humerus with routine healing ORDERING PHYSICIAN: MILAD SRINIVASAN MD PATIENT AGE: 67 years COMPARISON: Radiograph 08/01/2017 FINDINGS: There is longitudinal fracture involving the proximal humerus at the base of the greater tuberosity. There is minimal separation of the lateral fracture fragment by approximately 2 to 3 mm. The glenohumeral joint is intact. No other significant anomalies evident. The acromioclavicular joint has an unremarkable appearance. There is mild soft tissue swelling along the head of the humerus. IMPRESSION: Minimally displaced longitudinal fracture involving the proximal humerus laterally at the base of the greater tuberosity
== END ==
LOC: RAD 12:41
DX: S42.202D Unspecified fracture of upper end of left humerus, subsequent encounter for fracture with routine healing (principal)

== ENCOUNTER → 2017-08-13 | Outpatient (CLI) | payer MEDICARE, MEDICAID ==
--- NOTE | 2017-08-13 14:06 | RADIOLOGY REPORT PS360 ---
[id number] VIEWS HISTORY: Follow-up fracture FX LT HUMERUS ORDERING PHYSICIAN: MILAD SRINIVASAN MD PATIENT AGE: 67 years COMPARISON: 08/01/2017 FINDINGS: No change nondisplaced left proximal humeral fracture at the base of the greater tuberosity. Humeral head is located. IMPRESSION: No change left proximal humerus fracture.
== END ==
LOC: RAD 12:49
DX: S42.255A Nondisplaced fracture of greater tuberosity of left humerus, initial encounter for closed fracture (principal)

== ENCOUNTER → 2017-08-27 | Outpatient (CLI) | payer MEDICARE, MEDICAID ==
--- NOTE | 2017-08-27 14:10 | RADIOLOGY REPORT PS360 ---
[id number] VIEWS HISTORY: Follow-up fracture LEFT SHOULDER FX ORDERING PHYSICIAN: MILAD SRINIVASAN MD PATIENT AGE: 67 years COMPARISON: 08/13/2017 FINDINGS: Longitudinal fracture once again noted the base of the greater tuberosity. The fracture line is less apparent and there is callus formation developing consistent with healing. There is also a ill-defined sclerotic density along the neck of the humerus consistent with a healing occult humeral neck fracture. IMPRESSION: 1. Healing fracture of the greater tuberosity. 2. There is a sclerotic density along the neck of the humerus consistent with healing occult humeral neck fracture
== END ==
LOC: RAD 13:02
DX: S42.255D Nondisplaced fracture of greater tuberosity of left humerus, subsequent encounter for fracture with routine healing (principal)